=== PATIENT | male | born 1940 | race Caucasian/White ===

== ENCOUNTER 2018-01-04 22:59 | Emergency (ER) | payer MEDICARE ==
[2018-01-04] MEDS ORDERED: NIAC500T12 PO (23:11)
[2018-01-04] MEDS ORDERED: LOSA50TA74 PO (23:11)
[2018-01-04] MEDS ORDERED: CALC500T6 PO (23:30)
[2018-01-04] MEDS ORDERED: MELO-205 PO (23:30)
[2018-01-04] MEDS ORDERED: ASPI81TA94 PO (23:30)
[2018-01-04] MEDS ORDERED: SIMV-49 PO (23:30)
[2018-01-04] MEDS ORDERED: FINA5TAB67 PO (23:30)
[2018-01-04] MEDS ORDERED: GABA-547 PO (23:30)
[2018-01-04] MEDS ORDERED: OMEG-11 PO (23:30)
--- NOTE | 2018-01-04 23:36 | ER Report ---
History and Physical Time Seen By MD: 23:08 Hx. of Stated Complaint: Patient reports high blood pressure that started about 12/25/17 HPI/ROS CHIEF COMPLAINT: Elevated blood pressure HISTORY OF PRESENT ILLNESS: 77-year-old male brought in by his from [place]. Patient is followed by primary care down at [place]. He recently had a sleep study. They're awaiting the results. Patient has hypertension. Patient's been noticing some burning pain around his chin Nura and the lateral posterior aspect of his arms bilaterally for one week. The symptoms are intermittent. Tonight the patient notes increase in his blood pressure to 180/94. On arrival, patient's blood pressure is elevated to 190/98 Patient no jorje no visual changes. He notes no speech changes. He notes no numbness, tingling or weakness in any of his extremities. He denies headache. Patient seems generally anxious. REVIEW OF SYSTEMS: Respiratory: No cough, no dyspnea. Cardiovascular: No chest pain, no palpitations. Gastrointestinal: No vomiting, no abdominal pain. Musculoskeletal: No back pain. Allergies: Coded Allergies: sulfamethoxazole (Verified Allergy, Intermediate, Hives, 01/04/18) trimethoprim (Verified Allergy, Intermediate, Hives, 01/04/18) Home Meds Reported Medications [place]-3 Fatty Acids/Fish Oil (FISH OIL 1,000 MG CAPSULE) 1 Each Capsule, 1 EACH PO DAILY, CAPSULE 01/04/18 Calcium Carbonate (CALCIUM) 500 Mg Tablet, 500 MG PO QDAY 01/04/18 Gabapentin (GABAPENTIN) 100 Mg Capsule, 200 MG PO PRN, CAPSULE 01/04/18 Meloxicam (MELOXICAM) 7.5 Mg Tablet, 7.5 MG PO QDAY 01/04/18 Finasteride (FINASTERIDE) 5 Mg Tablet, 5 MG PO QDAY 01/04/18 Aspirin (ASPIRIN) 81 Mg Tab.chew, 81 MG PO QDAY, TAB.CHEW 01/04/18 Simvastatin (SIMVASTATIN) 20 Mg Tablet, 10 MG PO HS, TAB 01/04/18 Niacin (NIACIN ER) 500 Mg Tab.er.24h, 500 MG PO QDAY 01/04/18 Losartan Potassium (LOSARTAN POTASSIUM) 50 Mg Tablet, 50 MG PO QDAY 01/04/18 Past Medical/Surgical History wears glasses, minor TIA 2012, hypertension, BPH status post TURP 2, rotator cuff repair 2018, spinal stenosis, status post laminectomy 3, sleep apnea study are pending Reviewed Nurses Notes: Yes Old Medical Records Reviewed: Yes Constitutional Vital Sign - Last 24 Hours 01/04/18 01/04/18 01/04/18 01/04/18 23:03 23:03 23:29 23:30 Temp 97.9 Pulse 73 67 Resp 16 25 B/P (MAP) 191/98 (129) 191/98 165/83 (110) Pulse Ox 92 90 O2 Delivery Room Air 01/04/18 01/04/18 01/05/18 01/05/18 23:35 23:50 00:00 00:05 Pulse ??? 60 60 Resp 18 18 12 B/P (MAP) 134/80 (98) Pulse Ox 93 94 90 Physical Exam Vital signs stable, blood pressure elevated, pulse ox normal, afebrile General Appearance: The patient is alert, has no immediate need for airway protection and no current signs of toxicity. Mild distress, alert and oriented 3 HEENT: Pupils equal and round no injection. TMs normal, oropharynx no redness or exudate, mucous. Membranes are moist Respiratory: Chest is non tender, lungs are clear to auscultation. Cardiac: regular rate and rhythm, no murmur Gastrointestinal: Abdomen is soft and non tender, no masses, bowel sounds normal. Musculoskeletal: Neck: Neck is supple and non tender., No bruits, no lymphadenopathy Extremities have full range of motion and are non tender. No edema, no calf tenderness Skin: No rashes or lesions. Neurological alert and oriented 3, cranial nerves II through XII intact motor 5/5 processing associate, sensory intact to light touch 4, cerebellum grossly intact [ ] DIFFERENTIAL DIAGNOSIS: After history and physical exam differential diagnosis was considered for weakness including but not limited to electrolyte abnormality, depression, anxiety, CVA, spinal cord abnormality, and infectious causes. Medical Decision Making Data Points Result Diagram: 01/04/18 2334 01/04/18 2336 Laboratory Hematology Test 01/04/18 23:33 Red Blood Count 5.07 M/uL (4.00-5.60) Mean Corpuscular Volume 94.4 fL (80.0-96.0) Mean Corpuscular Hemoglobin 32.6 pg (26.0-33.0) Mean Corpuscular Hemoglobin Concent 34.6 g/dL (32.0-36.0) Red Cell Distribution Width 13.9 % (11.5-14.5) Mean Platelet Volume 8.9 fL (7.2-11.1) Neutrophils (%) (Auto) 67.8 % (39.4-72.5) Lymphocytes (%) (Auto) 21.4 % (17.6-49.6) Monocytes (%) (Auto) 8.7 % (4.1-12.4) Eosinophils (%) (Auto) 1.7 % (0.4-6.7) Basophils (%) (Auto) 0.4 % (0.3-1.4) Nucleated RBC Relative Count (auto) 0.1 /100WBC Neutrophils # (Auto) 6.7 K/uL (2.0-7.4) Lymphocytes # (Auto) 2.1 K/uL (1.3-3.6) Monocytes # (Auto) 0.9 K/uL (0.3-1.0) Eosinophils # (Auto) 0.2 K/uL (0.0-0.5) Basophils # (Auto) 0.0 K/uL (0.0-0.1) Nucleated RBC Absolute Count (auto) 0.01 K/uL Sodium Level 138 mmol/L (137-145) Potassium Level 3.7 mmol/L (3.5-5.0) Chloride Level 106 mmol/L (98-107) Carbon Dioxide Level 22 mmol/L (22-30) Blood Urea Nitrogen 23 mg/dl (9-21) Creatinine 1.00 mg/dl (0.66-1.25) Glomerular Filtration Rate Calc > 60.0 Random Glucose 112 mg/dl (75-110) Calcium Level 9.5 mg/dl (8.4-10.2) Total Bilirubin 0.5 mg/dl (0.2-1.3) Aspartate Amino Transf (AST/SGOT) 27 U/L (0-35) Alanine Aminotransferase (ALT/SGPT) 35 U/L (0-56) Alkaline Phosphatase 53 U/L (0-126) Troponin I < 0.012 ng/ml B-Type Natriuretic Peptide 115 pg/ml (0-100) Total Protein 7.0 g/dl (6.3-8.2) Albumin 4.1 g/dl (3.5-5.0) Chemistry Test 01/04/18 23:33 White Blood Count 9.9 k/uL (4.5-11.0) Red Blood Count 5.07 M/uL (4.00-5.60) Hemoglobin 16.5 g/dL (14.0-18.0) Hematocrit 47.8 % (42.0-52.0) Mean Corpuscular Volume 94.4 fL (80.0-96.0) Mean Corpuscular Hemoglobin 32.6 pg (26.0-33.0) Mean Corpuscular Hemoglobin Concent 34.6 g/dL (32.0-36.0) Red Cell Distribution Width 13.9 % (11.5-14.5) Platelet Count 198 K/uL (150-450) Mean Platelet Volume 8.9 fL (7.2-11.1) Neutrophils (%) (Auto) 67.8 % (39.4-72.5) Lymphocytes (%) (Auto) 21.4 % (17.6-49.6) Monocytes (%) (Auto) 8.7 % (4.1-12.4) Eosinophils (%) (Auto) 1.7 % (0.4-6.7) Basophils (%) (Auto) 0.4 % (0.3-1.4) Nucleated RBC Relative Count (auto) 0.1 /100WBC Neutrophils # (Auto) 6.7 K/uL (2.0-7.4) Lymphocytes # (Auto) 2.1 K/uL (1.3-3.6) Monocytes # (Auto) 0.9 K/uL (0.3-1.0) Eosinophils # (Auto) 0.2 K/uL (0.0-0.5) Basophils # (Auto) 0.0 K/uL (0.0-0.1) Nucleated RBC Absolute Count (auto) 0.01 K/uL Glomerular Filtration Rate Calc > 60.0 Calcium Level 9.5 mg/dl (8.4-10.2) Total Bilirubin 0.5 mg/dl (0.2-1.3) Aspartate Amino Transf (AST/SGOT) 27 U/L (0-35) Alanine Aminotransferase (ALT/SGPT) 35 U/L (0-56) Alkaline Phosphatase 53 U/L (0-126) Troponin I < 0.012 ng/ml B-Type Natriuretic Peptide 115 pg/ml (0-100) Total Protein 7.0 g/dl (6.3-8.2) Albumin 4.1 g/dl (3.5-5.0) EKG/Imaging EKG Interpretation 12 lead EK Rhythm: normal sinus rhythm [place]: normal QRS: normal ST segments: normal, no evidence of ischemia or dysrhythmia., No old EKGs for comparison Imaging X-ray: Two-view chest x-ray was obtained. I viewed the images myself on the PACS system. My interpretation of the images is: No infiltrate, no effusion, normal mediastinum. The radiologist interpretation had no clinically significa nt variation from this interpretation. ED Course/Re-evaluation ED Course Patient was admitted to an examination room. H&P was done. The differential diagnoses was considered. Patient with grossly elevated blood pressure 190/98. Patient does appear anxious. He describes facial burning. Been having accelerating symptoms over the last week. Tonight he is grossly elevated blood pressure caused him to come to the ER for evaluation. He's awaiting results of a sleep study from his primary care physician. Patient's negative for evaluation of stroke signs. Diagnostic evaluation is undertaken working lab work, chest x-ray and EKG. All are unremarkable. On reevaluation. Patient's blood pressures come down without treatment to 165/85. On reevaluation at d ischarge at 134/76. Patient reports all of his symptoms have resolved spontaneously. Patient's provided a copy of his EKG and chest x-ray report to take to his primary care physician when he has follow-up this week as advised. Decision to Disposition Date: Jan 05, 2018 Decision to Disposition Time: 00:13 Depart Departure Latest Vital Signs Vital Signs Date Time Temp Pulse Resp B/P (MAP) Pulse Ox O2 Delivery O2 Flow Rate FiO2 01/05/18 00:05 60 12 90 01/05/18 00:00 134/80 (98) 01/04/18 23:03 97.9 Room Air Impression: Primary Impression: Elevated blood pressure reading Additional Impressions: Anxiousness Hypertension Hyperlipidemia Elevated brain natriuretic peptide (BNP) level Mild dehydration Condition: Improved Disposition: HOME OR SELF-CARE Referrals: ROLDAN GORMAN DO (PCP) Patient Instructions: Hypertension (ED) Additional Instructions: Follow-up with your primary care this week for blood pressure recheck and further evaluation Problem Qualifiers Additional Impressions: Hypertension Hypertension type: essential hypertension Qualified Codes: I10 - Essential (primary) hypertension Hyperlipidemia Hyperlipidemia type: unspecified Qualified Codes: E78.5 - Hyperlipidemia, unspecified NOEL TOLBERT DO Jan 04, 2018 23:36
[2018-01-04 23:52] LABS: PLATELET COUNT, AUTOMATED 198 K/uL (150-450)
[2018-01-05] VITALS: BP 134/80
--- NOTE | 2018-01-05 00:13 | RADIOLOGY IMAGING REPORT ---
FACILITY: [facility] PATIENT NAME: Miki Larson : 1940 MR: [id number] V: [id number] EXAM DATE: ORDERING PHYSICIAN: NOEL TOLBERT TECHNOLOGIST: Location: [facility] Patient: Miki Lrason : 1940 Visit/Account:[id number] Date of Sevice: 01/04/2018 CHEST PA AND LAT HISTORY: Chest pain. Elevated blood pressure. COMPARISON: Left rib x-ray report from 02/21/2015. Images are not available. TECHNIQUE: PA and lateral views of the chest. FINDINGS: Pulmonary: Lungs are clear. There is no pneumothorax or pleural effusion. There is mild right hemidia phragm elevation. Cardiomediastinal: Cardiac and mediastinal silhouettes are within normal limits. There is mild aortic calcification. Bones/soft tissues: No acute osseous abnormality. There is mild degenerative change of the spine. The re is degenerative change of the acromioclavicular joints. The visible abdomen is normal. IMPRESSION: 1. No acute cardiopulmonary process. Report Dictated By: Shama Ambriz at 01/05/2018 12:06 AM Report E-Signed By: Shama Ambriz at 01/05/2018 12:09 AM WSN:[id number]
--- NOTE | 2018-01-05 05:42 | EKG ---
FACILITY: [facility] [place] PATIENT NAME: WENDY EAST : [id number] MR: [id number] V: [id number] EXAM DATE: ORDERING PHYSICIAN: NOEL TOLBERT TECHNOLOGIST: TANIA Test Reason : JAW PAIN Blood Pressure : / mmHG Vent. Rate : 066 BPM Atrial Rate : 066 BPM P-R Int : 188 ms QRS Dur : 098 ms QT Int : 412 ms P-R-T Axes : 047 059 054 degrees QTc Int : 431 ms Normal sinus rhythm Normal ECG No previous ECGs available Confirmed by TOÑO LAZARO ([id number]) on 01/05/2018 7:47:33 AM Referred By: DIDI Confirmed By:TOÑO LAZARO
== END 2018-01-05 00:20 | disposition home or self-care (01) ==
LOC: ER 23:16
DX: I10 Essential (primary) hypertension (principal); F41.9 Anxiety disorder, unspecified; E78.5 Hyperlipidemia, unspecified; R79.89 Other specified abnormal findings of blood chemistry; E86.0 Dehydration; R68.84 Jaw pain; R07.89 Other chest pain
CPT/HCPCS: 36415; 71046; 82040; 82247; 82310; 82374; 82435; 82565; 82947; 83880; 84075; 84132; 84155; 84295; 84450; 84460; 84484; 84520; 85025; 93005; 99284

== ENCOUNTER → 2018-02-05 | Outpatient (CLI) | payer MEDICARE ==
[~2018-02-05] MED LIST: ASPI81TA94 PO; CALC500T6 PO; FINA5TAB67 PO; GABA-547 PO; LOSA50TA74 PO; MELO-205 PO; NIAC500T12 PO; OMEG-11 PO; SIMV-49 PO
== END ==
LOC: RESP 20:53
PROVIDERS: ATTEND Internal Medicine
DX: G47.33 Obstructive sleep apnea (adult) (pediatric) (principal); G47.37 Central sleep apnea in conditions classified elsewhere